=== PATIENT | female | born 1995 | race Two or more races ===

== ENCOUNTER → 2017-04-17 | Outpatient (CLI) | payer OTHER ==
[2017-04-17 15:14] LABS: Basophils # (A) 0.1 k/uL (0-0.2); Basophils % (A) 1 %; CHCM 33.1; Eosinophils # (A) 0.1 k/uL (0-0.7); Eosinophils % (A) 1 %; HDW 2.42; HGB 12.9 gm/dL (11.4-16.0); Luc # (Auto) 0.12; Luc % (Auto) 2; Lymphocytes # (A) 2.1 k/uL (1.0-4.8); Lymphocytes % (A) 35 %; MCH 30.4 pg (25.0-35.0); MCHC 32.4 g/dL (31.0-37.0); Mean Platelet Volume 6.9; Monocytes # (A) 0.3 k/uL (0-1.0); Monocytes % (A) 5 %; Neutrophils # (A) 3.4 k/uL (1.3-7.7); Neutrophils % (A) 57 %; RBC 4.25 m/uL (3.80-5.40); RDW 12.5 % (11.5-15.5); WBC 6.1 k/uL (4.0-11.0); WBC (Perox) 6.34
[2017-04-17 15:23] LABS: ALT 34 U/L (9-52); AST 24 U/L (14-36); Alkaline Phosphatase 50 U/L (38-126); Anion Gap 8 mmol/L; Blood Urea Nitrogen 11 mg/dL (7-17); Calcium 9.6 mg/dL (8.4-10.2); Carbon Dioxide 26 mmol/L (22-30); Chloride 104 mmol/L (98-107); Glucose 81 mg/dL (74-99); Non-African American GFR(MDRD) >60 (>60 ml/min/1.73 sqM); Potassium 4.6 mmol/L (3.5-5.1); Sodium 138 mmol/L (137-145); Total Bilirubin 0.8 mg/dL (0.2-1.3); Total Protein 7.6 g/dL (6.3-8.2)
[2017-04-17 16:11] LABS: Vitamin B12 332 pg/mL (239-931)
== END ==
LOC: LABWHC1 14:55
PROVIDERS: ATTEND Family Medicine
DX: N93.8 Other specified abnormal uterine and vaginal bleeding (principal); R53.83 Other fatigue
CPT/HCPCS: 36415; 80053; 82607; 84439; 84443; 85025

== ENCOUNTER → 2023-12-21 | Outpatient (CLI) | payer BC ==
--- NOTE | 2023-12-21 14:43 | USB ---
Reason for Exam: Clinical finding. Technique: Method: Targeted. Findings: The lower section of the breast of the right breast, the axilla of the right breast and the retroareolar of the right breast were scanned. Targeted ultrasound right breast lower quadrant 3:00 to 6:00 including scanning of the subareolar region and axilla. No solid or cystic lesion or axillary lymphadenopathy.. Overall Assessment: Negative, BI-RAD 1 Management: Screening Mammogram of both breasts at age 41. Unless there is an indication to start sooner. Further clinical management of any suspicious palpable areas. The patient can continue monthly self breast exams. If any enlarging area is detected, the patient can be rescanned. Results were given to the patient verbally at the time of exam. Electronically signed and approved by: Edilia Granda M.D. Radiologist
== END | disposition home or self-care (01) ==
LOC: RADUSWWP 13:22
PROVIDERS: ATTEND Family Medicine
DX: N63.10 Unspecified lump in the right breast, unspecified quadrant (principal)

== ENCOUNTER → 2024-05-28 | Outpatient (CLI) | payer BC ==
[2024-05-28 09:14] LABS: INR 0.9 (<1.2); Partial Thromboplastin Time 25.3 sec (22.0-30.0); Prothrombin Time 10.3 sec (10.0-12.5)
[2024-05-28 15:04] LABS: HCT 37.7 % (37.2-46.3); HGB 12.6 g/dL (12.0-15.0); MCHC 33.4 g/dL (32.0-37.0); MCV 89.8 FL (80.0-97.0); Mean Platelet Volume 10.6 FL (9.5-12.2); NRBC Per 100 WBC 0 X 10*3/uL (0.00-0.01); Platelet Count 271 X 10*3/uL (140-440); RDW 12.1 % (11.5-14.5); WBC 8.57 X 10*3/uL (4.50-10.00)
[2024-05-28 15:36] LABS: Prealbumin 19.8 mg/dL (18.0-42.0)
[2024-05-28 15:55] LABS: % Iron Saturation 15.41 (12.00-45.00); Chloride 103 mmol/L (96-109); Chol/HDL Ratio 2.27 Ratio; Glucose 97 mg/dL (70-110); Iron 57 UG/DL (50-170); LDL Cholesterol,Calculated 93.1 mg/dL (0.0-131.0); Magnesium 1.7 mg/dL (1.5-2.4); Phosphorus 3.4 mg/dL (2.4-5.1); Potassium 3.7 mmol/L (3.5-5.5); Sodium 139 mmol/L (135-145); Total Iron Binding Capacity 370 UG/DL (228-460); VLDL Calculation 18.08 mg/dL (5.00-40.00)
[2024-05-28 15:56] LABS: ALT 17 U/L (8-44); AST 19 U/L (13-35); Albumin 4.5 g/dL (3.8-4.9); Alkaline Phosphatase 49 U/L (41-126); Calcium 9.4 mg/dL (8.7-10.3); Carbon Dioxide 23.6 mmol/L (21.6-31.8); Ferritin 43.3 ng/mL (10.0-291.0); Globulin 2.5 g/dL (1.6-3.3); Total Bilirubin <0.2 mg/dL (0.3-1.2)
[2024-05-29 12:37] LABS: Zinc, Serum 59 ug/dL (60-130)
[2024-05-30 11:14] LABS: Vit B1(Thiamine) 54 ug/L (38-122)
== END | disposition home or self-care (01) ==
LOC: LABWHC1 08:04
PROVIDERS: ATTEND Surgery Plastic and Reconstructive Surgery
DX: E66.01 Morbid (severe) obesity due to excess calories (principal); E89.1 Postprocedural hypoinsulinemia; D50.8 Other iron deficiency anemias; K91.2 Postsurgical malabsorption, not elsewhere classified; E44.0 Moderate protein-calorie malnutrition; E44.1 Mild protein-calorie malnutrition; E45 Retarded development following protein-calorie malnutrition; E55.9 Vitamin D deficiency, unspecified; K74.1 Hepatic sclerosis; K50.80 Crohn's disease of both small and large intestine without complications; N19 Unspecified kidney failure; T56.894A Toxic effect of other metals, undetermined, initial encounter
CPT/HCPCS: 36415; 80053; 80061; 80307; 80323; 82306; 82525; 82607; 82728; 82746; 83036; 83540; 83550; 83735; 83970; 84100; 84134; 84255; 84425; 84443; 84590; 84630; 85027; 85610; 85730; 93005

== ENCOUNTER 2024-06-09 07:05 | Day surgery (SDC) | payer BC ==
[2024-06-06 08:47] VITALS: BMI 43.2
[2024-06-09 07:42] VITALS: BP 133/67; PULSE 86; RESP 16; TEMP 97.3
[2024-06-09] MEDS: IV FLUID CONTINUATION 1,000 ML IV ONE (07:46)
[2024-06-09] MEDS: LACTATED RINGERS 1,000 ML BAG IV STA (07:48)
[2024-06-09] MEDS ORDERED: LACTATED RINGERS 1,000 ML BAG ONE (08:00)
[2024-06-09] MEDS ORDERED: LIDOCAINE 1% INJ 10MG/ML (20 ML MDV) ONE (08:04)
[2024-06-09] MEDS ORDERED: PROPOFOL 10 MG/ML 20 ML VIAL IV ONE (08:04)
--- NOTE | 2024-08-30 20:38 | P.GSHP ---
History of Present Illness H&P Date: 06/09/24 CHIEF COMPLAINT: GERD HISTORY OF PRESENT ILLNESS: The patient is a 28-year-old male who presents reports gastroesophageal reflux disease. Upper endoscopy was offered for further evaluation and management. PAST MEDICAL HISTORY: Please see list. PAST SURGICAL HISTORY: Please see list. MEDICATIONS: Please see list. ALLERGIES: Please see list. SOCIAL HISTORY: No illicit drug use FAMILY HISTORY: No reports of Crohn disease or ulcerative colitis. REVIEW OF ORGAN SYSTEMS: CONSTITUTIONAL: No reports of fevers or chills. GI: Denies any blood in stools or constipation. PHYSICAL EXAM: VITAL SIGNS: Stable GENERAL: Well-developed and pleasant in no acute distress. HEENT: No scleral icterus. Extraocular movements grossly intact. Moist buccal mucosa. NECK: Supple without lymphadenopathy. CHEST: Unlabored respirations. Equal bilateral excursions. CARDIOVASCULAR: Regular rate and rhythm. Distal 2+ pulses. ABDOMEN: Soft, nondistended. MUSCULOSKELETAL: No clubbing, cyanosis, or edema. ASSESSMENT: 1. Gastroesophageal reflux disease PLAN: 1. Recommend proceeding with an upper endoscopy Past Medical History Past Medical History: GERD/Reflux, Skin Disorder Additional Past Medical History / Comment(s): eczema gris feet History of Any Multi-Drug Resistant Organisms: None Reported Past Surgical History: Tonsillectomy Past Anesthesia/Blood Transfusion Reactions: Motion Sickness Additional Past Anesthesia/Blood Transfusion Reaction / Comment(s): no hx blood transfusion Smoking Status: Former smoker, Vaper - Past Family History Mother Family Medical History: Hypertension, Thyroid Disorder Additional Family Medical History / Comment(s): Genesis Medications and Allergies Home Medications Medication Instructions Recorded Confirmed Type busPIRone HCL 5 mg PO BID 05/21/24 07/23/24 History lamoTRIgine 150 mg PO HS 05/21/24 07/23/24 History Ascorbic Acid [Vitamin C chew] 1 tab PO DAILY 07/23/24 07/23/24 History Bacillus Coagulans [Probiotic] 1 tab PO DAILY 07/23/24 07/23/24 History Omeprazole [PriLOSEC] 40 mg PO DAILY #90 cap 07/23/24 Rx Allergies Allergy/AdvReac Type Severity Reaction Status Date / Time No Known Allergies Allergy Verified 07/23/24 17:13 Surgical - Exam Vital Signs Temp Pulse Resp BP Pulse Ox 97.3 F L 86 16 133/67 97 06/09/24 07:40 06/09/24 07:40 06/09/24 07:40 06/09/24 07:40 06/09/24 07:40
--- NOTE | 2024-08-30 20:40 | P.PCN ---
Date of Procedure: 06/09/24 Description of Procedure: PREOPERATIVE DIAGNOSIS: Gastroesophageal reflux disease. Morbid obesity due to excess calories POSTOPERATIVE DIAGNOSIS: Gastroesophageal reflux disease with erosive esophagitis Morbid obesity. Gastritis. Diaphragmatic hiatal hernia OPERATION: Esophagogastroduodenoscopy with biopsies along antrum and duodenum SURGEON: Melvi Rojo MD ANESTHESIA: MAC. INDICATIONS: The patient is a 47-year-old female who presents with reflux disease. Benefits and risks of the procedure were described. Informed consent was obtained. DESCRIPTION: The patient was brought into the endoscopy suite and laid in the left lateral decubitus position. An Olympus gastroscope was passed along the posterior oropharynx down to the distal esophagus where the squamocolumnar junction was encountered at 40 cm from the incisors. The stomach was entered and no bile reflux was found. Additional findings are listed below. Biopsies with cold forceps were obtained of the antrum. The first through third portion of the duodenum was examined. Retroflexion of the scope confirmed Hill grade 3 lower esophageal valve. The squamocolumnar junction demonstrated LA grade C erosive esophagitis. The stomach was desufflated. The patient tolerated the procedure well. FINDINGS: Squamocolumnar junction 40 cm from the incisors. Diaphragmatic hiatus at 40 cm. Hill grade 3 lower esophageal valve. LA grade C erosive esophagitis. Please obtain Biopsies obtained of the duodenum. Chronic gastritis with biopsies obtained. RECOMMENDATIONS: Omeprazole 40 mg daily prescribed
== END 2024-06-09 09:00 ==
LOC: ORWHC2ENDO 07:05
PROVIDERS: ATTEND Surgery Plastic and Reconstructive Surgery
DX: K21.00 Gastro-esophageal reflux disease with esophagitis, without bleeding
CPT/HCPCS: 43239; 81025; 88305; 88342

== ENCOUNTER → 2024-07-23 | Outpatient (CLI) | payer BC ==
[2024-07-23 17:19] VITALS: BP 118/80; PULSE 74; RESP 16; TEMP 98.4
--- NOTE | 2024-07-23 18:03 | P.BASOAP ---
Subjective Progress Note Date: 07/23/24 Needs gastric bypass. She stop breathing from reflux. Needs continue omeprazole. Objective - Vital Signs Vital signs: Vital Signs Temp 98.4 F 07/23/24 17:13 Pulse 74 07/23/24 17:13 Resp 16 07/23/24 17:13 BP 118/80 07/23/24 17:13 Pulse Ox FiO2 Intake & Output 07/22/24 07/23/24 07/23/24 18:59 06:59 18:59 Weight 123.831 kg Assessment/Plan Plan: Date: 07/23/24 Initial Weight: Initial BMI: Current Weight: 123.831 kg Current BMI: Type of Surgery: Total Volume in Band: Previous Volume: Volume Removed: Volume Added: Band Size:
== END ==
LOC: BARWHC3 16:28
PROVIDERS: ATTEND Surgery Plastic and Reconstructive Surgery
DX: E66.01 Morbid (severe) obesity due to excess calories (principal); K21.9 Gastro-esophageal reflux disease without esophagitis; Z68.41 Body mass index [BMI] 40.0-44.9, adult
CPT/HCPCS: 99211

== ENCOUNTER → 2024-09-03 | Outpatient (CLI) | payer BC ==
[2024-09-03 17:10] VITALS: BP 128/84; PULSE 81; RESP 16; TEMP 98.5; BMI 43.0
--- NOTE | 2024-09-03 17:44 | P.BASOAP ---
Subjective Progress Note Date: 09/03/24 She has reflux with aspiration. Bypass She is on 09/15. 13 to 15 pounds weight loss. Target 259 pounds. Lactulose pain. She was not doing the diet right. FMLA discussed. Omeprazole at local pharmacy. Objective - Vital Signs Vital signs: Vital Signs Temp 98.5 F 09/03/24 17:05 Pulse 81 09/03/24 17:05 Resp 16 09/03/24 17:05 BP 128/84 09/03/24 17:05 Pulse Ox FiO2 Intake & Output 09/02/24 09/03/24 09/03/24 18:59 06:59 18:59 Weight 122.924 kg Assessment/Plan Plan: Date: 09/03/24 Initial Weight: Initial BMI: Current Weight: 122.924 kg Current BMI: 43.0 Type of Surgery: Total Volume in Band: Previous Volume: Volume Removed: Volume Added: Band Size:
== END ==
LOC: BARWHC3 15:57
PROVIDERS: ATTEND Surgery Plastic and Reconstructive Surgery
DX: E66.01 Morbid (severe) obesity due to excess calories (principal); K21.9 Gastro-esophageal reflux disease without esophagitis; R42 Dizziness and giddiness; Z68.41 Body mass index [BMI] 40.0-44.9, adult
CPT/HCPCS: 99211

== ENCOUNTER → 2024-09-09 | Outpatient (CLI) | payer BC ==
[2024-09-09 14:59] LABS: Basophils # (A) 0.05 X 10*3/uL (0.00-0.10); Basophils % (A) 0.6 %; Eosinophils # (A) 0.05 X 10*3/uL (0.04-0.35); Eosinophils % (A) 0.6 %; HCT 38.5 % (37.2-46.3); HGB 12.9 g/dL (12.0-15.0); Lymphocytes # (A) 2.78 X 10*3/uL (0.90-5.00); Lymphocytes % (A) 32.2 %; MCH 30.2 pg (27.0-32.0); MCHC 33.5 g/dL (32.0-37.0); MCV 90.2 FL (80.0-97.0); Mean Platelet Volume 11.4 FL (9.5-12.2); Monocytes # (A) 0.57 X 10*3/uL (0.20-1.00); Monocytes % (A) 6.6 %; NRBC Per 100 WBC 0 X 10*3/uL (0.00-0.01); Neutrophils # (A) 5.16 X 10*3/uL (1.80-7.70); Neutrophils % (A) 59.8 %; Platelet Count 288 X 10*3/uL (140-440); RBC 4.27 X 10*6/uL (4.10-5.20); RDW 12.5 % (11.5-14.5); WBC 8.63 X 10*3/uL (4.50-10.00)
[2024-09-09 15:24] LABS: ALT 17 U/L (8-44); AST 21 U/L (13-35); Albumin 4.6 g/dL (3.8-4.9); Albumin/Globulin Ratio 1.53 Ratio (1.60-3.17); Alkaline Phosphatase 57 U/L (41-126); Blood Urea Nitrogen 15.2 mg/dL (9.0-27.0); Calcium 9.7 mg/dL (8.7-10.3); Carbon Dioxide 22.8 mmol/L (21.6-31.8); Chloride 103 mmol/L (96-109); Glucose 88 mg/dL (70-110); Sodium 138 mmol/L (135-145); Total Bilirubin 0.3 mg/dL (0.3-1.2); Total Protein 7.6 g/dL (6.2-8.2)
== END | disposition home or self-care (01) ==
LOC: LABWHC1 07:50
PROVIDERS: ATTEND Surgery Plastic and Reconstructive Surgery
DX: Z01.812 Encounter for preprocedural laboratory examination (principal)
CPT/HCPCS: 36415; 80053; 85025; 86850; 86900; 86901

== ENCOUNTER 2024-09-15 06:43 | Inpatient (IN) | payer BC ==
--- NOTE | 2024-09-15 06:10 | P.GSHP ---
History of Present Illness H&P Date: 09/15/24 CHIEF COMPLAINT: Morbid obesity HISTORY OF PRESENT ILLNESS: Geneva Barbosa is a 28-year-old female who comes with lifelong morbid obesity. As result of morbid obesity, she has developed severe gastroesophageal reflux disease with aspiration, obstructive sleep apnea, osteoarthritis of the hips and knees. She has completed medical supervised weight loss. She completed medical including cardiac assessment. She has completed psychological risk assessment. All surgical options were reviewed. She elected for gastric bypass. At height of 5 feet 6.5 inches, her ideal body weight is 154 pounds. Her highest weight is 279 pounds, body mass index 44.5. She comes in 271 pounds. Her body mass index is 43.1. She is 117 pounds overweight. PAST MEDICAL HISTORY: 1. Morbid obesity due to excess calories 2. Body mass index of 44.5 3. Osteoarthritis of the knees. 4. Osteoarthritis of the lower back. 5. Depressive disorder 6. Gastroesophageal reflux disease erosive esophagitis 7. Generalized anxiety disorder 8. Eczema 9. Obstructive sleep apnea PAST SURGICAL HISTORY: 1. Upper endoscopy 2. Tonsillectomy HOME MEDICATIONS: Reviewed ALLERGIES: Reviewed SOCIAL HISTORY: Past tobacco use. FAMILY HISTORY: No family history of ulcerative colitis disease or Crohn's disease. Family history of morbid obesity. No lupus in the family. No reports of stomach or esophageal cancer. REVIEW OF ORGAN SYSTEMS: CONSTITUTIONAL: At height of 5 feet 6.5 inches, her ideal body weight is 154 pounds. Her highest weight is 279 pounds, body mass index 44.5. She comes in 271 pounds. Her body mass index is 43.1. She is 117 pounds overweight. HEENT: Denies any active troubles with vision or hearing. ENDOCRINE: Denies diabetes. Denies hypothyroidism. CARDIOVASCULAR: Past reports of palpitations or heart attacks or chest pain. RESPIRATORY: Has daytime somnolence Including snoring. With aspiration GASTROINTESTINAL: Denies any bright red blood per rectum. Has gastroesophageal reflux disease. MUSCULOSKELETAL: Has lower back pain and joint pain. Has osteoarthritis of the knees. NEURO: No headaches. No seizure disorders. PSYCH: Has depression. No suicidal ideation. Has generalized anxiety disorder. RHEUMATOLOGIC: No lupus. No rheumatoid arthritis. HEMATOLOGIC: Denies any abnormal bleeding or bruising. No personal history of DVTs. SKIN: Has rash due to eczema. No skin cancer. PHYSICAL EXAM: VITAL SIGNS: Height 5 foot 6.5 inches, weight 265 pounds. BMI 42.1 GENERAL: Well-developed in no acute distress. HEENT: No scleral icterus. Extraocular movements grossly intact. Hears conversational speech. No nasal drainage. NECK: Supple without lymphadenopathy. CHEST: Nonlabored respirations with equal bilateral excursions. CARDIOVASCULAR: Regular rate and regular rhythm. Distal 2+ pulses. ABDOMEN: Obese, soft, nontender, nondistended. MUSCULOSKELETAL: No clubbing, cyanosis. NEURO: No focal or lateralizing signs. Cranial nerves 2 through 12 grossly within normal limits. PSYCH: Appropriate affect. Alert and oriented to person, place and time. SKIN: Good skin turgor. Well perfused. ASSESSMENT: 1. Morbid obesity due to excess calories 2. Body mass index of 44.5 3. Osteoarthritis of the knees. 4. Osteoarthritis of the lower back. 5. Depressive disorder 6. Gastroesophageal reflux disease erosive esophagitis 7. Generalized anxiety disorder 8. Eczema 9. Obstructive sleep apnea PLAN: 1. Bariatric options between a sleeve, band and a Dolly-en-Y gastric bypass were reviewed in detail. The patient elected for a gastric bypass. Robotic assisted approach described. 2. The [place] [facility] Data was also reviewed with benefits and risks as described. 3. An 8 page second-generation bariatric consent form was reviewed in detail including potential of bleeding, infection, leaks, adequate weight loss, nutr itional deficiencies which the patient demonstrated understanding of the risks. 4. A 2 week high-protein low caloric 800 kcal diet described to address hepatomegaly. 5. Preoperative labs including complete metabolic panel and CBC with type and screen recommended. 6. DVT prophylaxis per [place] [facility]. 7. Antibiotic prophylaxis. 8. Inpatient hospitalization anticipated for more than 2 nights. 9. All questions and concerns were addressed with the patient. 10. She is at elevated risk for perioperative complications secondary severe gastroesophageal reflux disease with aspiration. 11. Overall, patient has expressed understanding of bariatric care including postoperative diet and commitment of lifestyle. Patient should benefit from surgical intervention for correction of her morbid obesity. 12. Anticipated weight loss from 2-week protein diet of 5% otherwise 11 to 13 pounds. Goal weight between 257 to 259 pounds described on day of procedure otherwise risk of deferment of the procedure described. Past Medical History Past Medical History: GERD/Reflux, Skin Disorder Additional Past Medical History / Comment(s): Eczema bilateral feet. History of Any Multi-Drug Resistant Organisms: None Reported Past Surgical History: Tonsillectomy Additional Past Surgical History / Comment(s): EGD. Past Anesthesia/Blood Transfusion Reactions: Motion Sickness Additional Past Anesthesia/Blood Transfusion Reaction / Comment(s): No hx blood transfusion. Smoking Status: Former smoker, Vaper - Past Family History Mother Family Medical History: Hypertension, Thyroid Disorder Additional Family Medical History / Comment(s): Genesis Medications and Allergies Home Medications Medication Instructions Recorded Confirmed Type busPIRone HCL 5 mg PO BID 05/21/24 09/10/24 History lamoTRIgine 150 mg PO HS 05/21/24 09/10/24 History Lactulose [Cephulac] 20 gm PO BID #500 ml 09/03/24 09/10/24 Rx Multivitamins, Thera [Multivitamin 1 tab PO DAILY 09/10/24 09/10/24 History (formulary)] Omeprazole [PriLOSEC] 40 mg PO QAM 09/10/24 09/10/24 History Allergies Allergy/AdvReac Type Severity Reaction Status Date / Time No Known Allergies Allergy Verified 09/10/24 08:28
[~2024-09-15 06:43] MED LIST: ONDANSETRON 4 MG/2 ML VIAL IVP PRN
[2024-09-15] MEDS: SODIUM CHLORIDE 0.9% 1,000 ML IV STA (07:24)
[2024-09-15] MEDS: LACTATED RINGERS 1,000 ML IV SCH (07:24)
[2024-09-15] MEDS: DEXAMETHASONE SOD PHOSPHATE 4 MG/ML 1 ML VIAL IV ONE (07:29)
[2024-09-15] MEDS: ONDANSETRON 4 MG/2 ML VIAL IVP ONE ×2 (07:30→12:12)
[2024-09-15] MEDS: PANTOPRAZOLE 40 MG/10 ML VIAL IVP STA (07:30)
[2024-09-15] MEDS: SCOPOLAMINE 1 MG/72 HR PATCH TRANSDERM STA (07:30)
[2024-09-15] MEDS: ALVIMOPAN 12 MG CAPSULE PO PRN (07:31)
[2024-09-15] MEDS: ACETAMINOPHEN TAB 500 MG TAB PO PRN (07:31)
[2024-09-15] MEDS: HEPARIN SODIUM,PORCINE 5,000 UNIT/ML 1 ML VIAL SQ PRN (07:42)
[2024-09-15] MEDS: IV FLUID CONTINUATION 1,000 ML IV ONE ×3 (07:54→15:09)
--- NOTE | 2024-09-15 07:59 | P.HPADDEND ---
H&P Addendum H&P Addendum Date: 09/15/24 Patient did not achieve targeted weight loss as prior discussed. Patient is discussed for high risk for cancellation expressing presence of hepatomegaly with increases risk and likelihood of complications with her procedure. Patient is willing to proceed including curtailing her procedure to diagnostic laparoscopy only.
[2024-09-15] MEDS ORDERED: GLYCOPYRROLATE 0.2 MG/ML 2 ML VIAL ONE (08:10)
[2024-09-15] MEDS ORDERED: NEOSTIGMINE 1 MG/ML 10 ML VIAL ONE (08:10)
[2024-09-15] MEDS ORDERED: PHENYLEPHRINE 10 MG/ML VIAL ONE (08:10)
[2024-09-15] MEDS ORDERED: MIDAZOLAM 2 MG/2 ML VIAL ONE (08:10)
[2024-09-15] MEDS ORDERED: PROPOFOL 10 MG/ML 20 ML VIAL IV ONE (08:10)
[2024-09-15] MEDS ORDERED: SUCCINYLCHOLINE CHLORIDE 200 MG/10 ML VIAL IV ONE (08:10)
[2024-09-15] MEDS ORDERED: LIDOCAINE 2% (PF) 20 MG/ML 5 ML VIAL ONE (08:10)
[2024-09-15] MEDS ORDERED: ROCURONIUM 10 MG/ML (5 ML VIAL) IV ONE (08:10)
[2024-09-15] MEDS ORDERED: fentaNYL (PF) 50 MCG/ML 2 ML AMP ONE (08:10)
[2024-09-15] MEDS ORDERED: HYDROmorphone (PF) 1 MG/ML ONE (08:10)
[2024-09-15] MEDS: ceFAZolin 3 GM in SODIUM CHLORIDE 0.9% 100 ML IVPB PRN (08:15)
[2024-09-15] MEDS: LIDOCAINE 1%-EPI 1:100,000 20 ML VIAL SQ ONE (08:35)
[2024-09-15] MEDS ORDERED: NALOXONE 0.4 MG/ML 1 ML VIAL IV PRN (12:04)
[2024-09-15] MEDS ORDERED: diphenhydrAMINE 50 MG/ML 1 ML VIAL IVP PRN (12:09)
[2024-09-15] MEDS ORDERED: HYOSCYAMINE ORAL DROPS 1.875 MG/15 ML BOTTLE PO PRN (12:09)
--- NOTE | 2024-09-15 12:22 | P.OP ---
Date of Procedure: 09/15/24 Description of Procedure: SURGEON: BENI WEISS MD PREOPERATIVE DIAGNOSES: 1. Morbid obesity due to excess calories 2. Body mass index of 44.5 3. Osteoarthritis of the knees. 4. Osteoarthritis of the lower back. 5. Depressive disorder 6. Gastroesophageal reflux disease erosive esophagitis 7. Generalized anxiety disorder 8. Eczema 9. Obstructive sleep apnea 10. Motion sickness POSTOPERATIVE DIAGNOSES: 1. Morbid obesity due to excess calories 2. Body mass index of 44.5 3. Osteoarthritis of the knees. 4. Osteoarthritis of the lower back. 5. Depressive disorder 6. Gastroesophageal reflux disease erosive esophagitis 7. Generalized anxiety disorder 8. Eczema 9. Obstructive sleep apnea 10. Diaphragmatic hiatal hernia 11. Motion sickness OPERATION: 1. Robotic assisted da Chet Xi laparoscopic Dolly-en-Y gastric bypass, 150 cm antecolic antegastric Dolly limb, with 25 mm EEA. 2. Intraoperative esophagogastrojejunoscopy. ANESTHESIA: TIVA, GETA and local ESTIMATED BLOOD LOSS: 50 mL SPECIMENS REMOVED: None. COMPLICATIONS: NONE. Operative Findings: 1. Biliopancreatic limb 60 cm 2. Jejunojejunostomy and Reed's defects closed using 2-0 V-LOC, green 3. Leak test negative with gastrojejunal anastomosis patent and hemostatic. 4. Reinforcement sutures were placed along the gastrojejunal anastomosis at 3:00, 9:00 and 12:00. 5. Moderate bleeding along the gastric pouch suctioned and irrigated. 6. Small diaphragmatic hiatal hernia identified 7. Easy bleeding along skin incisions. INDICATIONS: Geneva Barbosa is a 28-year-old female who comes with lifelong morbid obesity. As result of morbid obesity, she has developed severe gastroesophageal reflux disease with aspiration, obstructive sleep apnea, osteoarthritis of the hips and knees. She has completed medical supervised weight loss. She completed medical including cardiac assessment. She has completed psychological risk assessment. All surgical options were reviewed. She elected for gastric bypass. At height of 5 feet 6.5 inches, her ideal body weight is 154 pounds. Her hi ghest weight is 279 pounds, body mass index 44.5. She comes in 271 pounds. Her body mass index is 43.1. She is 117 pounds overweight. A second-generation bariatric consent form was described in detail including the possibility of protein malnutrition, leaks, gastrojejunal stricture, venous thrombosis, need for further surgery for which she demonstrated understanding. Benefits and risks of the procedure were described at length. Informed consent was obtained. DESCRIPTION: The patient was brought into the operating room theater. She was placed supine. She had received heparin subcutaneously for DVT prophylaxis. Additionally Peridex oral solution as an oral decontaminant was placed per anesthesia. After general induction, the abdomen was prepped and draped in standard sterile fashion. Ioban draping was placed along the abdomen. Hobbs catheter was avoided. A robotic da Chet Xi system was prepped and primed. Incisions were proposed at 12 cm from the xiphoid. The patient's skin was demonstrating easy bleeding. Patient had limited xiphoid to umbilicus space less than 15 cm increasing complexity of the case. Proposed port sites were marked with indelible marker along the anterior axillary line bilaterally, mid clavicular line bilaterally with each port marked 10 cm from each other. The robotic stapler port was marked for the right midclavicular line including along the left midclavicular line. A 5 mm 0 degrees laparoscopic trocar entry was performed along the left upper quadrant and remained at the left upper quadrant. The abdomen was insufflated to 15 mmHg pressure, which she tolerated well. Diagnostic laparoscopy demonstrated no injury to bowel, viscera, or mesentery. The liver was consistent with her 2- week protein diet without hepatomegaly. An 8 mm camera port was placed left lateral to the umbilicus at the epigastrium, 15 cm distal to the xiphoid. Next, 12-mm robot stapler port was placed along the right mid abdomen. An 12 mm port was exchanged along the left upper quadrant. An 8 mm port was placed on the left lateral abdominal wall under direct visualization Please note that the ports were placed 18 to 20 cm away from the target anatomy of the stomach. Care was taken to check that each robotic arm was safely away from collision with the bed or the patient. At the epigastrium, a medium sized Magalie liver retractor was placed under d irect visualization with the Iron Client Manager Large Law placed under the right shoulder of the patient. The patient was repositioned in reverse Trendelenburg position at 25-degrees after lowering the bed. The robot was docked over the patient. Using grasper for arm 3, a grasper for arm 1, including vessel sealer for arm 4, the robotic system was docked and primed as described. Instruments were interchanged by the service assistant including endoscissors, the needle mail truck driver, and stapler. I had sat at the console. Next, the transverse mesocolon was reflected into the upper abdomen for the jejunojejunostomy portion of the case. The ligament of Treitz was identified and measured 60 cm antegrade and marked using 3-0 Silk. The jejunum was divided at the 60 cm point using 60-mm white loads above the suture measurement. The biliopancreatic limb was held in place. The Dolly limb was measured 150 cm in an antegrade fashion. At 150 cm along the anti-mesenteric border of the Dolly limb, a jejunojejunostomy was proposed whereby enterotomies were created along the biliopancreatic limb including the Dolly limb using a Bovie cautery. A stay suture of 3-0 Slik was placed to align and create the anastomosis. The enterotomies along the anti- mesenteric borders were created followed by unidirectional fire from the patient's right side using 60 mm blue loads Smart technology robotic stapler. The jejunojejunostomy was found to be hemostatic. The enterotomy was closed after horizontal mattress stitch of 3-0 silk used to elevate the enterotomy followed by closure with the robotic stapler blue load. The jejunal limb was temporarily tacked along the left upper quadrant. Attention was now brought to the creation of the gastrojejunostomy. Along the lesser curvature of the stomach, dissection was made along the retrogastric space to allow first firing of the robotic staple. Blue and green loads of 60 mm staplers were used to divide the stomach to create the gastric pouch. The patient was then prepared for placement of a Orvil. A 25-mm Orvil was selected for placement by the nurse upstairs maid. The Orvil tubing was placed anterior to the staple line of the gastric pouch and brought out through the left inferior lateral port. I re-scrubbed into the case. The robotic arms were temporarily undocked. The Orvil was then carefully and successfully navigated with the help of the nurse upstairs maid into the gastric pouch. The sutures were identified and divided. The tubing was from the 25 mm anvil. As the Orvil had been placed, the jejunal limb was brought proximally into the upper abdomen. No torsion was found upon the Dolly limb. No tension was identified as the limb was brought along the upper abdomen. The jejunal limb was previously opened using hook cautery. The 25-mm EEA stapler was brought through the left anterior lateral port site from the left side. The EEA stapler was brought through the open jejunal limb and its needle was deployed at the antimesenteric border where the anvil were mated for approximately 1 minute upon firing. The stapler was removed after irrigating the shaft of the instrument with warm normal saline. Donuts were found to be intact and on both sides. The da Chet Xi robot arms were then re-docked. I sat at the console. The open jejunal limb defect was closed using 60 mm blue loads after releasing any tension from the blind jejunal limb. No redundancy was present for jejunal limb. Small serosal defect along the jejunum distal to the anastomosis was oversewn using 3-0 Vicryl. Reinforcement sutures were placed along the gastrojejunal anastomosis and placed along the 3:00, 9:00, 12:00 o'clock position using 3-0 Vicryl. The Reed and jejunojejunostomy mesenteric defect was closed using 2-0 V LOC, green. I then went to the head of the bed to perform the esophagogastrojejunoscopy and a leak test. An Olympus gastroscope was passed alongthe posterior oropharynx which was unremarkable for any injury to the vocal cords. The scope was passed down to the proximal portion of the pouch, whereby no active bleeding was encountered. Excellent visualization of the gastrojejunostomy anastomosis, including the Dolly limb was encountered with endoscopic image obtained. The anastomosis was found to be patent with blood clot. Saline irrigation of 100 cc was used to irrigate the pouch and remove blood clots. The gastrointestinal tract was desufflated. No evidence of intraoperative leak was encountered as the gastric pouch and anastomosis were submerged under normal saline solution. The robot was then undocked. I then went back to the bedside of the patient, whereby with coordinated effort of the service assistant, irrigation was aspirated from the upper abdominal cavity. Tisseel was placed circumferentially over the anastomosis of the gastrojejunostomy. The fascial defect of the EEA stapler was closed using Kin [place] and 0 Vicryl. All instruments and pneumoperitoneum were evacuated from the abdominal cavity. The port correlating with the EEA stapler device was cleansed with normal saline solution and hydrogen peroxide. The rest of incisions were reapproximated using 4-0 Monocryl in an interrupted subcuticular fashion. Local anesthetic was infiltrated along the skin for postop analgesia. Liquid glue was applied to the skin. OptiFoam dressing was placed along the EEA stapler site. At the end of the procedure, needle, sponge and instrument count had been verified correct by the surgical scrub tech. The patient had tolerated the procedure well and was extubated and taken to the postanesthesia unit in stable condition.
[2024-09-15] MEDS: HYDROmorphone 0.5 MG/0.5 ML SYRINGE IVP PRN (12:59)
[2024-09-15] MEDS: CHLORHEXIDINE GLUCONATE 15 ML CUP MUCOUS MEM STA (15:56)
[2024-09-15] MEDS: ALBUTEROL NEBULIZED 2.5 MG/3 ML INHALATION SCH (16:14)
[2024-09-15] MEDS: SODIUM CHLORIDE 0.9% 1,000 ML IV ONE (16:29)
[2024-09-15] MEDS: ACETAMINOPHEN IV (For NPO) 1,000 MG/100 ML VIAL IVPB SCH (17:05)
[2024-09-15] MEDS: ONDANSETRON 4 MG/2 ML VIAL IVP SCH (17:05)
[2024-09-15] MEDS: SIMETHICONE 40 MG/0.6 ML DROPS 2,000 MG/30 ML BOTTLE PO SCH (17:06)
[2024-09-15] MEDS: 0.9% NACL WITH KCL 20 MEQ/L 1,000 ML IV SCH (17:20)
[2024-09-15] MEDS: PANTOPRAZOLE 40 MG/10 ML VIAL IVP SCH (20:26)
[2024-09-15] MEDS: HYDROmorphone 1 MG/ML 1 ML SYRINGE IVP PRN (20:52)
[2024-09-16 08:31] LABS: HCT 35.8 % (37.2-46.3); HGB 11.8 g/dL (12.0-15.0); MCH 30.3 pg (27.0-32.0); MCV 91.8 FL (80.0-97.0); Mean Platelet Volume 11.8 FL (9.5-12.2); NRBC Per 100 WBC 0 X 10*3/uL (0.00-0.01); Platelet Count 275 X 10*3/uL (140-440); RDW 12.5 % (11.5-14.5); WBC 12.69 X 10*3/uL (4.50-10.00)
[2024-09-16 08:32] LABS: Basophils # (A) 0.01 X 10*3/uL (0.00-0.10); Basophils % (A) 0.1 %; Eosinophils # (A) 0 X 10*3/uL (0.04-0.35); Eosinophils % (A) 0 %; Monocytes # (A) 1.05 X 10*3/uL (0.20-1.00); Monocytes % (A) 8.3 %; Neutrophils # (A) 10.18 X 10*3/uL (1.80-7.70); Neutrophils % (A) 80.2 %
[2024-09-16 09:09] LABS: Blood Urea Nitrogen 4.9 mg/dL (9.0-27.0); Calcium 8.6 mg/dL (8.7-10.3); Carbon Dioxide 19.2 mmol/L (21.6-31.8); Chloride 104 mmol/L (96-109); Magnesium 1.7 mg/dL (1.5-2.4); Phosphorus 3.3 mg/dL (2.4-5.1); Potassium 4.3 mmol/L (3.5-5.5); Sodium 136 mmol/L (135-145)
[2024-09-16] MEDS: 0.9% NACL WITH KCL 20 MEQ/L 1,000 ML IV SCH (11:06)
--- NOTE | 2024-09-16 13:26 | P.PN ---
Subjective Progress Note Date: 09/16/24 CHIEF COMPLAINT: Morbid obesity HISTORY OF PRESENT ILLNESS: Patient is postop day # 1 status post robotic laparoscopic Dolly-en-Y gastric bypass. Patient reports that she is still requiring the IV pain medication. She does report some nausea initially with drinking liquids. But it has resolved. She reports no difficulty with swallowing. She has ambulated. No flatus. Afebrile. WBC is 12.69 Hgb 11.8 platelets 275 PHYSICAL EXAM: VITAL SIGNS: Reviewed GENERAL: Well-developed in no acute distress. HEENT: No sclera icterus. Extraocular movements grossly intact. Moist buccal mucosa. Head is atraumatic, normocephalic. Hears conversational speech. No nasal drainage. NECK: Supple without lymphadenopathy. CHEST: Non-labored respirations and equal bilateral excursions. CARDIOVASCULAR: Palpable 2+ radial pulses. ABDOMEN: Soft. Nondistended. Abdominal binder in place MUSCULOSKELETAL: No clubbing or cyanosis. NEUROLOGIC: No focal or lateralizing signs. Cranial nerves II through XII grossly intact. PSYCH: Appropriate affect. Alert and oriented to person, place and time. SKIN: Well perfused. Good skin turgor. ASSESSMENT: 1. Morbid obesity due to excess calories 2. Body mass index of 44.5 3. Osteoarthritis of the knees. 4. Osteoarthritis of the lower back. 5. Depressive disorder 6. Gastroesophageal reflux disease erosive esophagitis 7. Generalized anxiety disorder 8. Eczema 9. Obstructive sleep apnea 10. Diaphragmatic hiatal hernia 11. Motion sickness PLAN: -Continue bariatric clear liquid diet -Continue pain management -Encourage patient to ambulate -Encourage patient to use incentive spirometer -Continue IV fluids -Anticipate discharge tomorrow -DVT prophylaxis SCDs Physician Extension Course Coordinator note has been reviewed by physician. Signing provider agrees with the documented findings, assessment, and plan of care. Please see additional documentation below CHIEF COMPLAINT: Morbid obesity HISTORY OF PRESENT ILLNESS: The patient is a 28-year-old female status post gastric bypass. Patient complaining of appropriate pain however still relying on narcotics. No reports of vomiting. ROS: No bowel movements. No fevers or chills. No new chest pain. No productive sputum PHYSICAL EXAM: VITAL SIGNS: Reviewed CONSTITUTIONAL: Well developed and in no acute distress. EYES: Conjuctivae without sclera icterus. Extraocular movements grossly intact. HEAD, EARS, NOSE, THROAT: Moist buccal mucosa. Head is atraumatic, normocephalic. Hears conversational speech. No nasal drainage. RESPIRATORY: Non-labored respirations and equal bilateral excursions. CARDIOVASCULAR: Palpable 2+ radial pulses. ABDOMEN: Abdominal binder present. MUSCULOSKELETAL: No gross deformity of the lower extremities noted. No clubbing. No cyanosis. SKIN: Good skin turgor. Well perfused. NEUROLOGIC: Cranial nerves II through XII grossly intact. No focal or latera lizing signs. PSYCH: Appropriate affect. Alert and oriented to person, place and time. CLINICAL LABS: Reviewed. WBC elevated. ASSESSMENT: 1. Status post gastric bypass for morbid obesity 2. BMI 41.2 PLAN: 1. May continue hospitalization due to pain control needed. 2. Will continue to monitor. Objective - Vital Signs Vital signs: Vital Signs Temp 98.1 F 09/16/24 08:00 Pulse 80 09/16/24 11:47 Resp 16 09/16/24 08:00 BP 116/78 09/16/24 08:00 Pulse Ox 96 09/16/24 11:39 FiO2 21 09/16/24 11:39 Intake & Output 09/15/24 09/16/24 09/16/24 18:59 06:59 18:59 Intake Total 1700 Output Total 50 Balance 1650 Weight 117.617 kg Intake: IV 1700 Output: Estimated Blood Loss 50 Other: Voiding Method Toilet # Voids 1 3 - Labs CBC & Chem 7: 09/17/24 02:54 09/17/24 15:04 Labs: Abnormal Lab Results - Last 24 Hours (Table) 09/16/24 09/16/24 Range/Units 03:35 03:35 WBC 12.69 H (4.50-10.00) X 10*3/uL RBC 3.90 L (4.10-5.20) X 10*6/uL Hgb 11.8 L (12.0-15.0) g/dL Hct 35.8 L (37.2-46.3) % Immature Gran # 0.05 H (0.00-0.04) X 10*3/uL Neutrophils # 10.18 H (1.80-7.70) X 10*3/uL Monocytes # 1.05 H (0.20-1.00) X 10*3/uL Eosinophils # 0 L (0.04-0.35) X 10*3/uL Carbon Dioxide 19.2 L (21.6-31.8) mmol/L Anion Gap 12.80 H (4.00-12.00) mmol/L BUN 4.9 L (9.0-27.0) mg/dL Calcium 8.6 L (8.7-10.3) mg/dL
[2024-09-16 14:24] VITALS: BMI 41.2
--- NOTE | 2024-09-17 07:03 | P.PN ---
Progress Note - Text Progress Note Date: 09/16/24 Patient seen and evaluated. Patient still complains of pain. Continue hospitalization with added non-narcotic management. Will proceed with UGI study while inpatient.
[2024-09-17] MEDS ORDERED: bisacodyL 5 MG TABLET.DR PO PRN (08:00)
[2024-09-17] MEDS: SODIUM CHLORIDE 0.9% 2,000 ML IV STA (08:27)
[2024-09-17 08:28] LABS: Basophils # (A) 0.02 X 10*3/uL (0.00-0.10); Basophils % (A) 0.2 %; Eosinophils # (A) 0.04 X 10*3/uL (0.04-0.35); Eosinophils % (A) 0.5 %; HCT 33.3 % (37.2-46.3); Lymphocytes # (A) 1.76 X 10*3/uL (0.90-5.00); Lymphocytes % (A) 20.4 %; MCH 30.4 pg (27.0-32.0); Mean Platelet Volume 11.4 FL (9.5-12.2); Monocytes # (A) 0.67 X 10*3/uL (0.20-1.00); Monocytes % (A) 7.8 %; NRBC Per 100 WBC 0 X 10*3/uL (0.00-0.01); Neutrophils # (A) 6.14 X 10*3/uL (1.80-7.70); Platelet Count 263 X 10*3/uL (140-440); RBC 3.62 X 10*6/uL (4.10-5.20); RDW 12.9 % (11.5-14.5); WBC 8.64 X 10*3/uL (4.50-10.00)
[2024-09-17] MEDS: METOCLOPRAMIDE 5 MG/ML 2 ML VIAL IVP SCH (08:28)
[2024-09-17] MEDS: HEPARIN SODIUM,PORCINE 5,000 UNIT/ML 1 ML VIAL SQ SCH (08:28)
[2024-09-17] MEDS: MAGNESIUM SULFATE-D5W PMX 1 GM in DEXTROSE/WATER 1 100ML.BAG IVPB SCH (10:42)
--- NOTE | 2024-09-17 12:59 | XR ---
EXAMINATION TYPE: XR abdomen 2V DATE OF EXAM: 09/17/2024 12:36 PM COMPARISON: None. CLINICAL INDICATION: Female, 28 years old with history of abdominal pain, vomiting, TECHNIQUE: XR abdomen 2V view(s) obtained. FINDINGS: There are air-fluid levels within the transverse colon. Correlate for gastroenteritis. No mass effect is evident. Psoas margins are normal. No organomegaly is present. No free air is evident. IMPRESSION: 1. Air-fluid levels within transverse colon. Correlate for gastroenteritis [facility], , 09/17/2024 12:57 PM
--- NOTE | 2024-09-17 14:17 | P.PN ---
Subjective Progress Note Date: 09/17/24 CHIEF COMPLAINT: Morbid obesity HISTORY OF PRESENT ILLNESS: Patient is postop day # 2 status post robotic laparoscopic Dolly-en-Y gastric bypass. Patient had vomiting that started last night. She does feel nauseous this morning. She also reports abdominal pain. She did make it through the night without the IV Dilaudid. After rounding on her this morning she had another 2 episodes of vomiting. Medications were adjusted by Dr. Rojo. She did receive a 2 L fluid bolus, scheduled Reglan and 2 g of magnesium. Abdominal x-ray ordered reporting air-fluid levels within transverse colon. Correlate for gastroenteritis. Results were reviewed with Dr. Rojo. Patient is not having any flatus. Afebrile. WBC 12.6 down to 8.64 Hgb 11 platelets 263 PHYSICAL EXAM: VITAL SIGNS: Reviewed GENERAL: Well-developed in no acute distress. HEENT: No sclera icterus. Extraocular movements grossly intact. Moist buccal mucosa. Head is atraumatic, normocephalic. Hears conversational speech. No nasal drainage. NECK: Supple without lymphadenopathy. CHEST: Non-labored respirations and equal bilateral excursions. CARDIOVASCULAR: Palpable 2+ radial pulses. ABDOMEN: Soft. Nondistended. Incision sites clean dry and intact MUSCULOSKELETAL: No clubbing or cyanosis. NEUROLOGIC: No focal or lateralizing signs. Cranial nerves II through XII grossly intact. PSYCH: Appropriate affect. Alert and oriented to person, place and time. SKIN: Well perfused. Good skin turgor. ASSESSMENT: 1. Morbid obesity due to excess calories 2. Body mass index of 44.5 3. Osteoarthritis of the knees. 4. Osteoarthritis of the lower back. 5. Depressive disorder 6. Gastroesophageal reflux disease erosive esophagitis 7. Generalized anxiety disorder 8. Eczema 9. Obstructive sleep apnea 10. Diaphragmatic hiatal hernia 11. Motion sickness PLAN: -Continue antiemetics -Urine drug screen ordered. Patient does use marijuana. Her nausea and vomiting could be related to cannabinoid hyperemesis. -Continue bariatric clear liquid diet -Continue pain management -Encourage patient to ambulate -Encourage patient to use incentive spirometer -Continue IV fluids -Repeat a BMP and magnesium now -DVT prophylaxis SCDs Physician Edge Stitcher note has been reviewed by physician. Signing provider agrees with the documented findings, assessment, and plan of care. Please see additional documentation below. CHIEF COMPLAINT: Morbid obesity HISTORY OF PRESENT ILLNESS: The patient is a 28-year-old female status post gastric bypass. Today, patient developed intractable nausea and vomiting. As result, upper GI study was discontinued. No reports of hematemesis. No flatus. Patient has past history of marijuana use. ROS: No bowel movements. No fevers or chills. No new chest pain. No produ ctive sputum PHYSICAL EXAM: VITAL SIGNS: Reviewed CONSTITUTIONAL: Well developed and in no acute distress. EYES: Conjuctivae without sclera icterus. Extraocular movements grossly intact. HEAD, EARS, NOSE, THROAT: Moist buccal mucosa. Head is atraumatic, normocephalic. Hears conversational speech. No nasal drainage. RESPIRATORY: Non-labored respirations and equal bilateral excursions. CARDIOVASCULAR: Palpable 2+ radial pulses. ABDOMEN: Incision intact. Abdominal binder not present. MUSCULOSKELETAL: No gross deformity of the lower extremities noted. No clubbing. No cyanosis. SKIN: Good skin turgor. Well perfused. NEUROLOGIC: Cranial nerves II through XII grossly intact. No focal or lateralizing signs. PSYCH: Appropriate affect. Alert and oriented to person, place and time. CLINICAL LABS: Reviewed. Magnesium low. WBC normal. ASSESSMENT: 1. Status post gastric bypass for morbid obesity 2. BMI 41.2 3. Intractable nausea and vomiting. 4. Past history of marijuana use. PLAN: 1. Recommend magnesium as low magnesium less than 2.0 may contribute to intractable nausea and vomiting. 2. Upper GI study on hold due to intractable nausea and vomiting. 3. Repeat BMP for electrolyte abnormalities 4. Continue hospitalization due to new intractable nausea and vomiting 5. Urine drug screen to assess for cannabis withdrawal with emesis Objective - Vital Signs Vital signs: Vital Signs Temp 98.4 F 09/17/24 13:00 Pulse 96 09/17/24 13:00 Resp 18 09/17/24 13:00 BP 127/81 09/17/24 13:00 Pulse Ox 94 L 09/17/24 13:00 FiO2 21 09/16/24 11:39 Intake & Output 09/16/24 09/17/24 09/17/24 18:59 06:59 18:59 Weight 117.617 kg Other: Voiding Method Toilet Toilet # Voids 3 2 - Labs CBC & Chem 7: 09/17/24 02:54 09/17/24 15:04 Labs: Abnormal Lab Results - Last 24 Hours (Table) 09/17/24 Range/Units 02:54 RBC 3.62 L (4.10-5.20) X 10*6/uL Hgb 11.0 L (12.0-15.0) g/dL Hct 33.3 L (37.2-46.3) %
[2024-09-17 15:43] LABS: African American GFR (CKD) >90 (>60 ml/min/1.73 sqM); Anion Gap 10 mmol/L; Blood Urea Nitrogen <2 mg/dL (7-17); Calcium 8.3 mg/dL (8.4-10.2); Carbon Dioxide 17 mmol/L (22-30); Chloride 106 mmol/L (98-107); Glucose 101 mg/dL (74-99); Magnesium 2.4 mg/dL (1.6-2.3); Non-African American GFR(CKD) >90 (>60 ml/min/1.73 sqM); Potassium 4.1 mmol/L (3.5-5.1); Sodium 133 mmol/L (137-145)
[2024-09-17 17:45] LABS: Glucose,Whole Blood 80 mg/dL (70-110)
[2024-09-17] MEDS: SCOPOLAMINE 1 MG/72 HR PATCH TRANSDERM SCH (18:31)
[2024-09-18 02:49] LABS: Urine Alcohol Negative (Negative)
[2024-09-18 02:50] LABS: Urine Barbiturate Negative (Negative); Urine Cocaine Negative (Negative); Urine Methadone Negative (Negative); Urine Opiates Negative (Negative); Urine Phencyclidine Negative (Negative)
[2024-09-18] MEDS ORDERED: PROCHLORPERAZINE INJ 10 MG/2 ML VIAL IVP PRN (05:03)
--- NOTE | 2024-09-18 08:14 | P.PN ---
Subjective Progress Note Date: 09/18/24 CHIEF COMPLAINT: Morbid obesity HISTORY OF PRESENT ILLNESS: The patient is a 28-year-old female who developed intractable nausea and vomiting yesterday. Yesterday evening, her medications were adjusted to include a new dose of scopolamine patch and readjustment with placement of her binder. This morning, she reports feeling better. She is resting in the chair. Her mother is at bedside. She reports tolerating drinking water after placement for binder with new scopolamine patch. ROS: No bowel movements. No fevers or chills. No new chest pain. No productive sputum PHYSICAL EXAM: VITAL SIGNS: Reviewed CONSTITUTIONAL: Well developed and in no acute distress. EYES: Conjuctivae without sclera icterus. Extraocular movements grossly intact. HEAD, EARS, NOSE, THROAT: Moist buccal mucosa. Head is atraumatic, normocephalic. Hears conversational speech. No nasal drainage. RESPIRATORY: Non-labored respirations and equal bilateral excursions. CARDIOVASCULAR: Palpable 2+ radial pulses. ABDOMEN: Abdominal binder present. MUSCULOSKELETAL: No gross deformity of the lower extremities noted. No clubbing. No cyanosis. SKIN: Good skin turgor. Well perfused. NEUROLOGIC: Cranial nerves II through XII grossly intact. No focal or lateralizing signs. PSYCH: Appropriate affect. Alert and oriented to person, place and time. CLINICAL LABS: Reviewed. Urine drug screen negative. White blood cell count normal. Sodium low under 135. Magnesium 2.5. Potassium within normal limits. STUDIES: Abdominal x-ray dependently reviewed demonstrates nonobstructive bowel gas pattern. Air within the colon and rectum identified. This is my independent interpretation. REPORT: Abdominal x-ray report demonstrates gastroenteritis. ASSESSMENT: 1. Status post gastric bypass for morbid obesity 2. BMI 41.2 3. Intractable nausea and vomiting, resolved. PLAN: 1. Patient is doing better after interventions with scopolamine patch and abdominal binder. Patient asked to continue abdominal binder at home. 2. We will give 2 L normal saline bolus for risk of dehydration for inadequate oral intake. 3. Disposition today discussed after IV fluid bolus and lunch. Objective - Vital Signs Vital signs: Vital Signs Temp 98.6 F 09/18/24 00:25 Pulse 77 09/18/24 00:25 Resp 15 09/18/24 00:25 BP 142/82 09/18/24 00:25 Pulse Ox 97 09/18/24 00:25 FiO2 21 09/16/24 11:39 Intake & Output 09/17/24 09/18/24 09/18/24 18:59 06:59 18:59 Intake Total 3500 Balance 3500 Intake: Intake, IV Titration 3500 Amount 0.9% NaCl with KCl 20 Meq 1200 /l 1,000 ml @ 100 mls/hr IV .Q10H [facility] Rx#: [id number] Magnesium Sulfate-D5w Pmx 300 1 gm In Dextrose/Water 1 100ml.bag @ 100 mls/hr IVPB Q1H [facility] Rx#: [id number] Sodium Chloride 0.9% 2, 2000 000 ml @ 999 mls/hr IV . Q2H1M [facility]A Rx#:[id number] Other: Voiding Method Toilet Toilet # Voids 4 2 - Labs CBC & Chem 7: 09/17/24 02:54 09/17/24 15:04 Labs: Abnormal Lab Results - Last 24 Hours (Table) 09/17/24 09/17/24 Range/Units 02:54 15:04 RBC 3.62 L (4.10-5.20) X 10*6/uL Hgb 11.0 L (12.0-15.0) g/dL Hct 33.3 L (37.2-46.3) % Sodium 133 L (137-145) mmol/L Carbon Dioxide 17 L (22-30) mmol/L BUN <2 L (7-17) mg/dL Creatinine 0.50 L (0.52-1.04) mg/dL Glucose 101 H (74-99) mg/dL Calcium 8.3 L (8.4-10.2) mg/dL Magnesium 2.4 H (1.6-2.3) mg/dL
[2024-09-18 09:02] VITALS: RESP 18
[2024-09-18] MEDS: SODIUM CHLORIDE 0.9% 2,000 ML IV ONE (09:24)
[2024-09-18 14:25] VITALS: BP 119/78; PULSE 98; TEMP 97.9
== END 2024-09-18 14:32 | disposition home or self-care (01) | DRG 620 ==
LOC: 2ORMAIN 06:43 → 4SSUR 15:43
PROVIDERS: ADMIT Surgery Plastic and Reconstructive Surgery; ATTEND Surgery Plastic and Reconstructive Surgery
PROC: 8E0W8CZ Robotic Assisted Procedure of Trunk Region, Via Natural or Artificial Opening Endoscopic (ICD-10-PCS; 2024-09-15)
PROC: 0DJ08ZZ Inspection of Upper Intestinal Tract, Via Natural or Artificial Opening Endoscopic (ICD-10-PCS; 2024-09-15)
PROC: 0D164ZA Bypass Stomach to Jejunum, Percutaneous Endoscopic Approach (ICD-10-PCS; principal; 2024-09-15 08:00)
DX: E66.01 Morbid (severe) obesity due to excess calories (principal); K22.10 Ulcer of esophagus without bleeding; Z68.41 Body mass index [BMI] 40.0-44.9, adult; M16.0 Bilateral primary osteoarthritis of hip; F32.A Depression, unspecified; F41.1 Generalized anxiety disorder; L30.9 Dermatitis, unspecified; K21.00 Gastro-esophageal reflux disease with esophagitis, without bleeding; M17.0 Bilateral primary osteoarthritis of knee; G47.33 Obstructive sleep apnea (adult) (pediatric); K44.9 Diaphragmatic hernia without obstruction or gangrene; T75.3XXA Motion sickness, initial encounter; Z87.891 Personal history of nicotine dependence
CPT/HCPCS: 74019; 80048; 80051; 80306; 81025; 82310; 82565; 83735; 84100; 84520; 85025; 94640; 94760

== ENCOUNTER → 2024-09-22 | Outpatient (CLI) | payer BC ==
[2024-09-22 13:31] VITALS: RESP 16; TEMP 98.1; BMI 40.3
[2024-09-22] MEDS: SODIUM CHLORIDE 0.9% 1,000 ML IV ONE (13:50)
[2024-09-22 14:01] VITALS: BP 133/83; PULSE 73
== END ==
LOC: BARWHC3 13:02
PROVIDERS: ATTEND Surgery Plastic and Reconstructive Surgery
DX: E86.0 Dehydration (principal); R13.10 Dysphagia, unspecified; E66.01 Morbid (severe) obesity due to excess calories; Z71.3 Dietary counseling and surveillance
CPT/HCPCS: 96360; 97802; 99211

== ENCOUNTER → 2024-09-23 | Outpatient (CLI) | payer BC ==
[~2024-09-23] MED LIST changes: -ONDANSETRON 4 MG/2 ML VIAL IVP PRN; +SODIUM CHLORIDE 0.9% 250 ML in EMPTY BAG 1 BAG IV PRN; +SODIUM CHLORIDE 0.9% 500 ML 500 ML in EMPTY BAG 1 BAG IV PRN
[2024-09-23 12:02] VITALS: BP 135/84; PULSE 67; RESP 16; TEMP 98.1
[2024-09-23] MEDS: SODIUM CHLORIDE 0.9% 1,000 ML IV SCH (12:07)
== END ==
LOC: PROCWHC3 11:53
PROVIDERS: ATTEND Surgery Plastic and Reconstructive Surgery
DX: E86.0 Dehydration (principal)
CPT/HCPCS: 96360; 96361

== ENCOUNTER → 2024-09-23 | Outpatient (CLI) | payer BC | END | disposition home or self-care (01) | LOC: RADUSWWP 11:03 | PROVIDERS: ATTEND Surgery Plastic and Reconstructive Surgery ==

== ENCOUNTER → 2024-09-24 | Outpatient (CLI) | payer BC ==
--- NOTE | 2024-09-23 12:45 | FL ---
EXAMINATION TYPE: FL barium swallow DATE OF EXAM: 09/23/2024 LIMITED UGI-ESOPHAGRAM: CLINICAL HISTORY: Gastric Bypass UGI TECHNIQUE: Limited esophagram/ugi is performed utilizing 50 mlof Omnipaque 350. A total of 65 second s of fluoroscopic time was utilized during procedure. FINDINGS: The patient swallowed contrast without difficulty or delay. Esophageal peristalsis and mo tility are within normal limits. There is good flow of contrast along the diaphragmatic hiatus into t he postoperative stomach. The proximal jejunal loops are mildly dilated at 4 cm with wall thickening. The findings may reflect postoperative edema and mild ileus. Follow-up study advised. No evidence fo r leak at this time. IMPRESSION: The proximal jejunal loops are mildly dilated at 4 cm with wall thickening. The findings may reflect postoperative edema and mild ileus. Follow-up study advised. No evidence for leak at this time. [facility], , 09/23/2024 12:43 PM
[2024-09-24 13:31] VITALS: BP 125/85; PULSE 89; RESP 16; TEMP 98.2; BMI 40.5
--- NOTE | 2024-09-24 13:55 | P.BASOAP ---
Subjective Progress Note Date: 09/24/24 She is passing flatus. Having BMs without blood. VSS stable. Pain is getting better. She slept without binder and feels better. She is feeling better. She wants to get back. Nov 03. She has pain with yogurt and reports stuck sensation. Recommend warm broth. Urine is no longer dark after IVS.She has lost wegiht. NO ER 10/15/24. She reports numb left hand. She has 5th and 4th finger. She has some pins and needles feeling. New binder. NO infection. Free massage classes. Get labs. Random menstrual cycle. Nest week labs Objective - Vital Signs Vital signs: Vital Signs Temp 98.2 F 09/24/24 13:18 Pulse 89 09/24/24 13:18 Resp 16 09/24/24 13:18 BP 125/85 09/24/24 13:18 Pulse Ox FiO2 Intake & Output 09/23/24 09/24/24 09/24/24 18:59 06:59 18:59 Weight 115.666 kg Assessment/Plan Plan: Date: 09/24/24 Initial Weight: Initial BMI: Current Weight: 115.666 kg Current BMI: 40.5 Type of Surgery: Total Volume in Band: Previous Volume: Volume Removed: Volume Added: Band Size:
== END ==
LOC: BARWHC3 13:03
PROVIDERS: ATTEND Surgery Plastic and Reconstructive Surgery
DX: K63.89 Other specified diseases of intestine (principal); Z68.41 Body mass index [BMI] 40.0-44.9, adult
CPT/HCPCS: 74220; 99211; Q9967

== ENCOUNTER 2024-09-27 09:02 | Emergency (ER) | payer BC ==
[2024-09-27 09:50] VITALS: TEMP 98.6
[2024-09-27 12:06] LABS: Basophils # (A) 0.1 k/uL (0-0.2); Basophils % (A) 1 %; Eosinophils # (A) 0.2 k/uL (0-0.7); Eosinophils % (A) 2 %; HCT 41.6 % (34.0-46.0); HGB 13.8 gm/dL (11.4-16.0); Lymphocytes # (A) 2.3 k/uL (1.0-4.8); Lymphocytes % (A) 23 %; MCH 29.8 pg (25.0-35.0); MCHC 33.3 g/dL (31.0-37.0); MCV 89.5 fL (80.0-100.0); Mean Platelet Volume 7.5; Monocytes # (A) 0.4 k/uL (0-1.0); Monocytes % (A) 4 %; Neutrophils # (A) 6.8 k/uL (1.3-7.7); Neutrophils % (A) 69 %; Platelet Count 333 k/uL (150-450); RBC 4.64 m/uL (3.80-5.40); RDW 12.7 % (11.5-15.5); WBC 9.9 k/uL (3.8-10.6)
[2024-09-27 12:25] LABS: ALT 25 U/L (4-34); African American GFR (CKD) >90 (>60 ml/min/1.73 sqM); Albumin 4.2 g/dL (3.5-5.0); Anion Gap 9 mmol/L; Blood Urea Nitrogen 9 mg/dL (7-17); Calcium 9.5 mg/dL (8.4-10.2); Carbon Dioxide 27 mmol/L (22-30); Chloride 104 mmol/L (98-107); Glucose 75 mg/dL (74-99); Non-African American GFR(CKD) >90 (>60 ml/min/1.73 sqM); Sodium 140 mmol/L (137-145); Total Bilirubin 0.5 mg/dL (0.2-1.3); Total Protein 7.1 g/dL (6.3-8.2)
[2024-09-27 12:34] LABS: AST 25 U/L (14-36); Alkaline Phosphatase 50 U/L (38-126); Potassium 4.1 mmol/L (3.5-5.1)
--- NOTE | 2024-09-27 12:58 | CT ---
EXAMINATION TYPE: CT abdomen pelvis w con DATE OF EXAM: 09/27/2024 12:51 PM COMPARISON: None. CLINICAL INDICATION: Female, 28 years old with history of Surgical wound drainage, Surgical wound carlitos inage, post bariatric sx 09/15/24, pt had barium swallow last week. TECHNIQUE:CT scan of the abdomen and pelvis is performed without Oral Contrast and with IV Contrast, patient injected with 100 mL of Isovue 300. CT DLP: 1793.1 mGycm, Automated exposure control for dose reduction was used. FINDINGS: LUNG BASES-: No visible nodule. No infiltrate. Basilar atelectasis with small effusions. LIVER/GB: No calcified gallstones. No space occupying hepatic lesion. Biliary tree is of normal ca liber. PANCREAS: No inflammation. No distinct mass. SPLEEN: No splenic enlargement. No lesion seen. ADRENALS: No nodule. No thickening. KIDNEYS/BLADDER: No hydronephrosis. No nephrolithiasis. No distinct renal mass. Urinary bladder g rossly unremarkable. BOWEL: Normal appendix. Postoperative changes of Dolly-en-Y gastric bypass. Jejunal loops are mildly t hickened. No evidence for obstruction. No free air present. No evidence for leak. Colon is of normal caliber. GENITAL ORGANS: No gross abnormality. LYMPH NODES: No greater than 1cm abdominal or pelvic lymph nodes are appreciated. AORTA: No significant abnormality. OSSEOUS STRUCTURES: No significant abnormality is seen. OTHER: Subcutaneous bilobed fluid collection left lower quadrant measuring 3.7 x 2.5 cm with associat ed skin thickening could reflect seroma. Infected collection is not excluded. IMPRESSION: 1. Subcutaneous bilobed fluid collection left lower quadrant measuring 3.7 x 2.5 cm with associated s kin thickening could reflect seroma. Infected collection is not excluded. 2.Postoperative changes of Dolly-en-Y gastric bypass. Jejunal loops are mildly thickened. No evidence for obstruction. [facility], , 09/27/2024 12:56 PM
--- NOTE | 2024-09-27 13:32 | ED ---
General Adult HPI - General Chief complaint: Skin/Abscess/Foreign Body Stated complaint: Post-op pain Time Seen by Provider: 09/27/24 09:51 Source: patient, RN notes reviewed, old records reviewed Mode of arrival: ambulatory Limitations: no limitations - History of Present Illness Initial comments: 28-year-old female presents emergency department complaining of drainage from her left upper abdominal incision site. Patient states that she had surgery by Dr. Rojo on 1111 states that she had a bypass surgery. Patient states that she had some reddish-orange tinge drainage this morning no increasing pain. - Related Data Home Medications Medication Instructions Recorded Confirmed busPIRone HCL 5 mg PO BID 05/21/24 09/24/24 lamoTRIgine 150 mg PO HS 05/21/24 09/24/24 Omeprazole [PriLOSEC] 40 mg PO HS 09/10/24 09/24/24 Previous Rx's Medication Instructions Recorded Acetaminophen Tab [Tylenol Tab] 1,000 mg PO Q6HR PRN #30 tablet 09/18/24 Ondansetron Odt [Zofran ODT] 4 mg PO Q8HR PRN #20 tab 09/18/24 Scopolamine 1 mg/72 Hr Patch 1 patch TRANSDERM Q72H #4 patch 09/18/24 [TransDerm Scop] Simethicone 40 mg/0.6 ml Drops 40 mg PO PCHS PRN #30 ml 09/18/24 [Mylicon Drops] bisacodyL [Dulcolax] 5 mg PO DAILY PRN #10 tab 09/18/24 Cyclobenzaprine [Flexeril] 10 mg PO TID #30 tab 09/24/24 cephALEXin [Keflex Oral Susp] 10 ml PO TID #300 ml 09/27/24 Allergies Allergy/AdvReac Type Severity Reaction Status Date / Time No Known Allergies Allergy Verified 09/27/24 09:46 Review of Systems ROS Statement: Those systems with pertinent positive or pertinent negative responses have been documented in the HPI. ROS Other: All systems not noted in ROS Statement are negative. Past Medical History Past Medical History: No Reported History Additional Past Medical History / Comment(s): eczema gris feet History of Any Multi-Drug Resistant Organisms: None Reported Past Surgical History: Bariatric Surgery, Tonsillectomy Additional Past Surgical History / Comment(s): EGD, 09/15/2024 gastric bypass Past Anesthesia/Blood Transfusion Reactions: Motion Sickness Additional Past Anesthesia/Blood Transfusion Reaction / Comment(s): no hx blood transfusion Past Psychological History: Anxiety, Depression Smoking Status: Never smoker Past Alcohol Use History: None Reported Past Drug Use History: None Reported - Past Family History Mother Family Medical History: Hypertension, Thyroid Disorder Additional Family Medical History / Comment(s): Genesis General Exam Limitations: no limitations General appearance: alert, in no apparent distress Head exam: Present: atraumatic, normocephalic, normal inspection Eye exam: Present: normal appearance, PERRL, EOMI. Absent: scleral icterus, conjunctival injection, periorbital swelling ENT exam: Present: normal exam, normal oropharynx, mucous membranes moist Neck exam: Present: normal inspection, full ROM. Absent: tenderness, meningismus, lymphadenopathy Respiratory exam: Present: normal lung sounds bilaterally. Absent: respiratory distress, wheezes, rales, rhonchi, stridor Cardiovascular Exam: Present: normal rhythm, tachycardia, normal heart sounds. Absent: systolic murmur, diastolic murmur, rubs, gallop, clicks GI/Abdominal exam: Present: soft, tenderness (Around left incision, there is some blood tinge drainage noted), normal bowel sounds. Absent: distended, guarding, rebound, rigid Course Vital Signs 09/27/24 09/27/24 09/27/24 09:46 11:55 12:55 Temperature 98.6 F Pulse Rate 118 H 87 97 Respiratory 18 17 16 Rate Blood Pressure 127/83 115/75 120/81 O2 Sat by Pulse 98 99 99 Oximetry 09/27/24 13:37 Temperature Pulse Rate 87 Respiratory 19 Rate Blood Pressure 135/73 O2 Sat by Pulse 100 Oximetry Medical Decision Making - Medical Decision Making Was pt. sent in by a medical professional or institution (, PA, FISHING ROD MECHANIC, urgent care, hospital, or half-way...) When possible be specific @ -No Did you speak to anyone other than the patient for history (EMS, parent, family, police, friend...)? What history was obtained from this source @ -No Did you review nursing and triage notes (agree or disagree)? Why? @ -I reviewed and agree with nursing and triage notes Were old charts reviewed (outside hosp., previous admission, EMS record, old EKG, old radiological studies, urgent care reports/EKG's, half-way records)? Report findings @ -No old charts were reviewed Differential Diagnosis (chest pain, altered mental status, abdominal pain women, abdominal pain men, vaginal bleeding, weakness, fever, dyspnea, syncope, headache, dizziness, GI bleed, back pain, seizure, CVA, palpatations, mental health, musculoskeletal)? @ -Differential Abdominal Pain Women: Appendicitis, Cholecystitis, diverticulosis, ischemic bowel, pancreatitis, hepatitis, UTI, gastroenteritis, AAA, incarcerated hernia, bowel obstruction, constipation, inflammatory bowel, hepatitis, peptic ulcer disease, splenic infarction, perforated viscus, vulvitis, ovarian torsion, PID, kidney stone, placenta abruption, this is not meant to be an all-inclusive list EKG interpreted by me (3pts min.). @ -None X-rays interpreted by me (1pt min.). @ -None done CT interpreted by me (1pt min.). @CT abdomen pelvis showing bilobed seroma 3 x 2-1/2 cm cannot rule out infection U/S interpreted by me (1pt. min.). @ -None done What testing was considered but not performed or refused? (CT, X-rays, U/S, labs)? Why? @ -None What meds were considered but not given or refused? Why? @ -None Did you discuss the management of the patient with other professionals (professionals i.e. , PA, FISHING ROD MECHANIC, lab, RT, psych nurse, social media intern, logistics technician, teacher, desk officer, correctional counselor/case manager)? Give summary @ -[Discussed case with Dr. Mott covering for Dr. Rojo recommends oral antibiotics and close follow-up on Sunday Was smoking cessation discussed for >3mins.? @ -No Was critical care preformed (if so, how long)? @ -No Were there social determinants of health that impacted care today? How? (Homelessness, low income, unemployed, alcoholism, drug addiction, transportation, low edu. Level, literacy, decrease access to med. care, prison, rehab)? @ -No Was there de-escalation of care discussed even if they declined (Discuss DNR or withdrawal of care, Hospice)? DNR status @ -No What co-morbidities impacted this encounter? (DM, HTN, Smoking, COPD, CAD, Cancer, CVA, ARF, Chemo, Hep., AIDS, mental health diagnosis, sleep apnea, morbid obesity)? @ -None Was patient admitted / discharged? Hospital course, mention meds given and route, prescriptions, significant lab abnormalities, going to OR and other pertinent info. @ -Discharge patient presented for seroma Undiagnosed new problem with uncertain prognosis? @ -No Drug Therapy requiring intensive monitoring for toxicity (Heparin, Nitro, Insulin, Cardizem)? @ -No Were any procedures done? @ -No Diagnosis/symptom? @ -postop seroma Acute, or Chronic, or Acute on Chronic? @ -acute Uncomplicated (without systemic symptoms) or Complicated (systemic symptoms)? @ -Uncomplicated Side effects of treatment? @ -No Exacerbation, Progression, or Severe Exacerbation? @ -No Poses a threat to life or bodily function? How? (Chest pain, [place], [place], pneumonia, PE, COPD, DKA, ARF, appy, cholecystitis, CVA, Diverticulitis, Homicidal, Suicidal, threat to staff... and all critical care pts) @ -No - Lab Data Result diagrams: 09/27/24 11:40 09/27/24 11:40 Lab Results 09/27/24 09/27/24 Range/Units 11:40 11:40 WBC 9.9 (3.8-10.6) k/uL RBC 4.64 (3.80-5.40) m/uL Hgb 13.8 (11.4-16.0) gm/dL Hct 41.6 (34.0-46.0) % MCV 89.5 (80.0-100.0) fL MCH 29.8 (25.0-35.0) pg MCHC 33.3 (31.0-37.0) g/dL RDW 12.7 (11.5-15.5) % Plt Count 333 (150-450) k/uL MPV 7.5 Neutrophils % 69 % Lymphocytes % 23 % Monocytes % 4 % Eosinophils % 2 % Basophils % 1 % Neutrophils # 6.8 (1.3-7.7) k/uL Lymphocytes # 2.3 (1.0-4.8) k/uL Monocytes # 0.4 (0-1.0) k/uL Eosinophils # 0.2 (0-0.7) k/uL Basophils # 0.1 (0-0.2) k/uL Sodium 140 (137-145) mmol/L Potassium 4.1 (3.5-5.1) mmol/L Chloride 104 (98-107) mmol/L Carbon Dioxide 27 (22-30) mmol/L Anion Gap 9 mmol/L BUN 9 (7-17) mg/dL Creatinine 0.68 (0.52-1.04) mg/dL Est GFR (CKD-EPI)AfAm >90 (>60 ml/min/1.73 sqM) Est GFR (CKD-EPI)NonAf >90 (>60 ml/min/1.73 sqM) Glucose 75 (74-99) mg/dL Calcium 9.5 (8.4-10.2) mg/dL Total Bilirubin 0.5 (0.2-1.3) mg/dL AST 25 (14-36) U/L ALT 25 (4-34) U/L Alkaline Phosphatase 50 (38-126) U/L Total Protein 7.1 (6.3-8.2) g/dL Albumin 4.2 (3.5-5.0) g/dL Disposition Clinical Impression: Postoperative seroma Disposition: HOME SELF-CARE Condition: Stable Instructions (If sedation given, give patient instructions): Seroma (DC) Additional Instructions: Please return to the Emergency Department if symptoms worsen or any other concerns. Prescriptions: cephALEXin [Keflex Oral Susp] 10 ml PO TID #300 ml Is patient prescribed a controlled substance at d/c from ED?: No Referrals: Shirley Moore DO [Primary Care Provider] - 1-2 days Melvi Rojo MD [STAFF PHYSICIAN] - 1-2 days Time of Disposition: 13:30
[2024-09-27 13:38] VITALS: BP 135/73; PULSE 87; RESP 19
== END 2024-09-27 14:05 | disposition home or self-care (01) ==
LOC: EC 09:02
DX: K91.873 Postprocedural seroma of a digestive system organ or structure following other procedure (principal); Z90.89 Acquired absence of other organs
CPT/HCPCS: 36415; 80053; 85025; 74177; 99284; Q9967

== ENCOUNTER → 2024-10-01 | Outpatient (CLI) | payer BC ==
[2024-10-01 14:27] LABS: INR 1.1 (<1.2); Prothrombin Time 11.8 sec (10.0-12.5)
[2024-10-01 18:56] LABS: HCT 39.6 % (37.2-46.3); HGB 13.1 g/dL (12.0-15.0); MCH 29.2 pg (27.0-32.0); MCHC 33.1 g/dL (32.0-37.0); MCV 88.4 FL (80.0-97.0); Mean Platelet Volume 11.7 FL (9.5-12.2); NRBC Per 100 WBC 0 X 10*3/uL (0.00-0.01); Platelet Count 297 X 10*3/uL (140-440); RBC 4.48 X 10*6/uL (4.10-5.20); RDW 12.6 % (11.5-14.5)
[2024-10-01 19:47] LABS: Magnesium 1.6 mg/dL (1.5-2.4); Phosphorus 3.1 mg/dL (2.4-5.1); VLDL Calculation 17.84 mg/dL (5.00-40.00)
[2024-10-01 19:48] LABS: % Iron Saturation 25.56 (12.00-45.00); ALT 22 U/L (8-44); AST 20 U/L (13-35); Albumin 4.2 g/dL (3.8-4.9); Alkaline Phosphatase 60 U/L (41-126); BUN/Creat Ratio 17.29 Ratio (12.00-20.00); Blood Urea Nitrogen 12.1 mg/dL (9.0-27.0); Calcium 9.5 mg/dL (8.7-10.3); Carbon Dioxide 21.6 mmol/L (21.6-31.8); Chloride 105 mmol/L (96-109); Glucose 80 mg/dL (70-110); Iron 69 UG/DL (50-170); LDL Cholesterol,Calculated 68.3 mg/dL (0.0-131.0); Potassium 3.7 mmol/L (3.5-5.5); Sodium 141 mmol/L (135-145); Total Bilirubin 0.3 mg/dL (0.3-1.2); Total Iron Binding Capacity 270 UG/DL (228-460); Total Protein 7.2 g/dL (6.2-8.2)
[2024-10-01 20:56] LABS: Prealbumin 13.4 mg/dL (18.0-42.0)
== END | disposition home or self-care (01) ==
LOC: LABWHC1 13:35
PROVIDERS: ATTEND Surgery Plastic and Reconstructive Surgery
DX: E66.01 Morbid (severe) obesity due to excess calories (principal); E89.1 Postprocedural hypoinsulinemia; D50.8 Other iron deficiency anemias; K91.2 Postsurgical malabsorption, not elsewhere classified; E44.0 Moderate protein-calorie malnutrition; E44.1 Mild protein-calorie malnutrition; E45 Retarded development following protein-calorie malnutrition; E55.9 Vitamin D deficiency, unspecified; K74.1 Hepatic sclerosis; N19 Unspecified kidney failure; T56.894A Toxic effect of other metals, undetermined, initial encounter; K50.90 Crohn's disease, unspecified, without complications
CPT/HCPCS: 36415; 80053; 80061; 82306; 82525; 82607; 82728; 82746; 83036; 83540; 83550; 83735; 83970; 84100; 84134; 84255; 84425; 84443; 84590; 84630; 85027; 85610; 85730

== ENCOUNTER → 2024-10-01 | Outpatient (CLI) | payer BC ==
[2024-10-01 13:36] VITALS: BP 117/84; TEMP 98.3; BMI 39.4
--- NOTE | 2024-10-01 14:23 | P.BASOAP ---
Subjective Progress Note Date: 10/01/24 She was erroneously placed on antibiotics for clear seroma. Her soreness is now gone. She had CT scan. She feels well. Labs edith. Germaine and paper work. Return to work after Oct 15. FU in Oct 08 for return to work status. Objective - Vital Signs Vital signs: Vital Signs Temp 98.3 F 10/01/24 13:32 Pulse Resp BP 117/84 10/01/24 13:32 Pulse Ox FiO2 Intake & Output 09/30/24 10/01/24 10/01/24 18:59 06:59 18:59 Weight 112.491 kg Assessment/Plan Plan: Date: 10/01/24 Initial Weight: Initial BMI: Current Weight: 112.491 kg Current BMI: 39.4 Type of Surgery: Total Volume in Band: Previous Volume: Volume Removed: Volume Added: Band Size:
== END ==
LOC: BARWHC3 13:14
PROVIDERS: ATTEND Surgery Plastic and Reconstructive Surgery
DX: E66.01 Morbid (severe) obesity due to excess calories (principal); Z68.39 Body mass index [BMI] 39.0-39.9, adult
CPT/HCPCS: 99211

== ENCOUNTER → 2024-10-08 | Outpatient (CLI) | payer BC ==
[2024-10-08 13:53] VITALS: BP 117/77; PULSE 98; RESP 16; TEMP 97.7; BMI 39.1
--- NOTE | 2024-10-08 14:11 | P.PN ---
Subjective Progress Note Date: 10/08/24 She is going well. She has a new position. She is doing well. Off all restrictions 1 month after surgery. RTW 10/20/24. No GERD. She was able to eat cod. Objective - Vital Signs Vital signs: Vital Signs Temp 97.7 F 10/08/24 13:40 Pulse 98 10/08/24 13:40 Resp 16 10/08/24 13:40 BP 117/77 10/08/24 13:40 Pulse Ox FiO2 Intake & Output 10/07/24 10/08/24 10/08/24 18:59 06:59 18:59 Weight 111.584 kg
--- NOTE | 2024-10-08 14:15 | P.PN ---
Progress Note - Text Progress Note Date: 10/08/24 To whom it may concern: Geneva Barbosa is under my surgical care. She may return to work on Sunday, October 20, 2024 without restrictions. Regards, Melvi Rojo MD FACS
== END ==
LOC: BARWHC3 13:22
PROVIDERS: ATTEND Surgery Plastic and Reconstructive Surgery
DX: E66.01 Morbid (severe) obesity due to excess calories (principal); Z71.3 Dietary counseling and surveillance; Z68.39 Body mass index [BMI] 39.0-39.9, adult
CPT/HCPCS: 97803; 99211

== ENCOUNTER → 2025-03-20 | Outpatient (CLI) | payer BC ==
[2025-03-20 15:57] LABS: Partial Thromboplastin Time 24.7 sec (22.0-30.0)
[2025-03-20 18:23] LABS: HCT 37.7 % (37.2-46.3); HGB 12.2 g/dL (12.0-15.0); MCH 29.6 pg (27.0-32.0); MCHC 32.4 g/dL (32.0-37.0); MCV 91.5 FL (80.0-97.0); Mean Platelet Volume 11.5 FL (9.5-12.2); NRBC Per 100 WBC 0 X 10*3/uL (0.00-0.01); Platelet Count 252 X 10*3/uL (140-440); RBC 4.12 X 10*6/uL (4.10-5.20); RDW 12.8 % (11.5-14.5); WBC 6.36 X 10*3/uL (4.50-10.00)
[2025-03-20 18:53] LABS: Prealbumin 14.7 mg/dL (18.0-42.0)
[2025-03-20 19:12] LABS: % Iron Saturation 19.72 (12.00-45.00); ALT 20 U/L (8-44); AST 18 U/L (13-35); Albumin 4.4 g/dL (3.8-4.9); Albumin/Globulin Ratio 1.57 Ratio (1.60-3.17); Alkaline Phosphatase 79 U/L (41-126); BUN/Creat Ratio 18.12 Ratio (12.00-20.00); Blood Urea Nitrogen 14.5 mg/dL (9.0-27.0); Carbon Dioxide 25.5 mmol/L (21.6-31.8); Chloride 102 mmol/L (96-109); Chol/HDL Ratio 2.02 Ratio; Globulin 2.8 g/dL (1.6-3.3); Glucose 85 mg/dL (70-110); Iron 71 UG/DL (50-170); LDL Cholesterol,Calculated 72.8 mg/dL (0.0-131.0); Magnesium 1.8 mg/dL (1.5-2.4); Phosphorus 3.8 mg/dL (2.4-5.1); Potassium 3.9 mmol/L (3.5-5.5); Sodium 140 mmol/L (135-145); Total Bilirubin 0.4 mg/dL (0.3-1.2); Total Iron Binding Capacity 360 UG/DL (228-460); Total Protein 7.2 g/dL (6.2-8.2); VLDL Calculation 8.02 mg/dL (5.00-40.00)
[2025-03-22 21:42] LABS: Selenium 259 mcg/L (63-160)
== END | disposition home or self-care (01) ==
LOC: LABWHC1 14:41
PROVIDERS: ATTEND Surgery Plastic and Reconstructive Surgery
DX: E55.9 Vitamin D deficiency, unspecified (principal); E66.01 Morbid (severe) obesity due to excess calories; E89.1 Postprocedural hypoinsulinemia; E44.0 Moderate protein-calorie malnutrition; E45 Retarded development following protein-calorie malnutrition; D50.8 Other iron deficiency anemias; D50.9 Iron deficiency anemia, unspecified; K74.1 Hepatic sclerosis; N19 Unspecified kidney failure; K50.90 Crohn's disease, unspecified, without complications; T56.894A Toxic effect of other metals, undetermined, initial encounter
CPT/HCPCS: 36415; 80053; 80061; 82306; 82525; 82607; 82728; 82746; 83036; 83540; 83550; 83735; 83970; 84100; 84134; 84255; 84425; 84443; 84590; 84630; 85027; 85610; 85730